=== PATIENT | female | born 1975 | race Caucasian/White ===

== ENCOUNTER 2016-12-10 11:32 | Outpatient (CLI) | payer BC ==
[~2016-12-10] VITALS: Ht 177.8 cm; Wt 97.5 kg
[2016-12-10] MEDS ORDERED: OLME40TA12 PO (11:45)
[2016-12-10] MEDS ORDERED: FLUT9.9S NS (11:45)
[2016-12-10] MEDS ORDERED: MULT-35 PO (11:45)
[2016-12-10] MEDS ORDERED: FEXO180T84 PO (11:45)
== END 2016-12-10 14:44 ==
LOC: PREOP 11:32
PROVIDERS: ATTEND Otolaryngology Otolaryngology/Facial Plastic Surgery
DX: Z01.818 Encounter for other preprocedural examination (principal); H65.23 Chronic serous otitis media, bilateral

== ENCOUNTER 2016-12-14 07:28 | Day surgery (SDC) | payer BC ==
[~2016-12-14] VITALS: Ht 177.8 cm; Wt 97.5 kg
[~2016-12-14 07:28] MED LIST: FEXO180T84 PO; FLUT9.9S NS; MULT-35 PO; OLME40TA12 PO
[2016-12-14 08:07] LABS: BASOPHILS % (AUTO) 1 % (0-10); EOSINOPHILS # (AUTO) 0.2 10^3/uL (0.0-0.3); EOSINOPHILS % (AUTO) 2 % (0-10); LYMPHOCYTES # (AUTO) 2.1 X 10^3 (1.0-4.0); LYMPHOCYTES % (AUTO) 28 % (12-44); MEAN CORPUSCULAR HEMOGLOBIN 29 PG (25-34); MEAN CORPUSCULAR HGB CONC 34 G/DL (32-36); MEAN CORPUSCULAR VOLUME 86 FL (80-99); MEAN PLATELET VOLUME 10.3 FL (7.4-10.4); MONOCYTES # (AUTO) 0.7 X 10^3 (0.0-1.0); MONOCYTES % (AUTO) 9 % (0-12); NEUTROPHILS # (AUTO) 4.5 X 10^3 (1.8-7.8); NEUTROPHILS % (AUTO) 61 % (42-75); PLATELET COUNT 248 10^3/uL (130-400); RED BLOOD COUNT 4.92 10^6/uL (4.35-5.85); RED CELL DISTRIBUTION WIDTH 12.7 % (10.0-14.5); WHITE BLOOD COUNT 7.5 10^3/uL (4.3-11.0)
[2016-12-14 08:09] VITALS: BP 107/72
--- OUTSIDE RECORDS SUMMARY | 2016-12-14 08:24 | XMS REPORT ---
Author Author [facility] Medical Staff Organization [facility] Address [address] [address] [place] [id number] Phone [phone] Care Team Providers Care Detasseling Crew Supervisor Name Role Phone NU NARVAEZ, JESUS CHOPRA [phone] Summary purpose CCDA Sent to [facility] Chief Complaint and Reason for Visit No authorized Reason for Visit (Admitting Diagnosis) is available for this visit. Problem list No authorized problems tracked for continuity of care are available for this visit. Encounters No authorized problems tracked for encounter diagnoses are available for this visit. Medications No medications recorded for this patient visit Allergies, adverse reactions, alerts Allergen Category Ingredient Status Reaction Severity Onset latex Drug latex Active Rash Adolescence Tape Miscellaneous Tape Active Rash Adolescence Immunizations No immunizations recorded for this patient visit Relevant diagnostic tests and/or laboratory data RESULTS Serology Group :38:00 Result Normal Range Units Mycoplasma Pneumo Negative Negative Reference Lab Group [id number]:38:00 Result Normal Range Units Adenovirus Not Detected Not Detected Result Amended on 2015-12-26 at 19:01:32. Previous status was FR. Adeno2 Not Detected Not Detected Result Amended on 2015-12-26 at 19:01:32. Previous status was FR. Coronavirus 229E Not Detected Not Detected Result Amended on 2015-12-26 at 19:01:32. Previous status was FR. Coronavirus HKU1 Not Detected Not Detected Result Amended on 2015-12-26 at 19:01:32. Previous status was FR. Coronavirus NL63 Not Detected Not Detected Result Amended on 2015-12-26 at 19:01:32. Previous status was FR. Coronavirus OC43 Not Detected Not Detected Result Amended on 2015-12-26 at 19:01:32. Previous status was FR. Human Metapneumovir. Not Detected Not Detected Result Amended on 2015-12-26 at 19:01:32. Previous status was FR. Entero1 Not Detected Not Detected Result Amended on 2015-12-26 at 19:01:32. Previous status was FR. Entero2 Not Detected Not Detected Result Amended on 2015-12-26 at 19:01:32. Previous status was FR. Human Rhinovirus 1 AB Detected Not Detected Result Amended on 2015-12-26 at 19:01:32. Previous status was FR. Human Rhinovirus 2 AB Detected Not Detected Result Amended on 2015-12-26 at 19:01:32. Previous status was FR. Human Rhinovirus 3 AB Detected Not Detected Result Amended on 2015-12-26 at 19:01:32. Previous status was FR. Human Rhinovirus 4 AB Detected Not Detected Result Amended on 2015-12-26 at 19:01:32. Previous status was FR. KsxP-W5-1898 Not Detected Not Detected Result Amended on 2015-12-26 at 19:01:32. Previous status was FR. FluA-H1-hoover Not Detected Not Detected Result Amended on 2015-12-26 at 19:01:32. Previous status was FR. FluA-H3 Not Detected Not Detected Result Amended on 2015-12-26 at 19:01:32. Previous status was FR. FluA-pan1 Not Detected Not Detected Result Amended on 2015-12-26 at 19:01:32. Previous status was FR. FluA-pan2 Not Detected Not Detected Result Amended on 2015-12-26 at 19:01:32. Previous status was FR. Influenza B Not Detected Not Detected Result Amended on 2015-12-26 at 19:01:32. Previous status was FR. Parainfluenza Virus 1 Not Detected Not Detected Result Amended on 2015-12-26 at 19:01:32. Previous status was FR. Parainfluenza Virus 2 Not Detected Not Detected Result Amended on 2015-12-26 at 19:01:32. Previous status was FR. Parainfluenza Virus 3 Not Detected Not Detected Result Amended on 2015-12-26 at 19:01:32. Previous status was FR. Parainfluenza Virus 4 Not Detected Not Detected Result Amended on 2015-12-26 at 19:01:32. Previous status was FR. Respiratory Syncytial Vir Not Detected Not Detected Result Amended on 2015-12-26 at 19:01:32. Previous status was FR. Bordetella pertussis Not Detected Not Detected Result Amended on 2015-12-26 at 19:01:32. Previous status was FR. Chlamydophila pnemon Not Detected Not Detected Result Amended on 2015-12-26 at 19:01:32. Previous status was FR. Mycoplasma pneumoni Not Detected Not Detected Result Amended on 2015-12-26 at 19:01:32. Previous status was FR. Gram Positive Bacteria [id number]:38:00 Result Normal Range Units Entero1 Not Detected Not Detected Result Amended on 2015-12-26 at 19:01:32. Previous status was FR. History of procedures Procedure Code Code Type Description Date Performed Performing Physician 50010 CPT-4 DETECT AGENT NOS, DNA, AMP 12-26-2015 JESUS BACANI 85203 CPT-4 RESP VIRUS 12-25 TARGETS 12-26-2015 JESUS BACANI 28565 CPT-4 CHYLMD PNEUM, DNA, AMP PROBE 12-26-2015 JESUS BACANI 92808 CPT-4 M.PNEUMON, DNA, AMP PROBE 12-26-2015 JESUS BACANI 73239 CPT-4 MYCOPLASMA ANTIBODY 12-26-2015 JESUS BACANI 49019 CPT-4 ROUTINE VENIPUNCTURE 12-26-2015 JESUS BACANI Functional status No functional or cognitive status observations are available for this visit. Vital signs No authorized vital signs are available for this visit. Social history No Social History or smoking status observations were recorded for this visit. ( Unknown if ever smoked.) Treatment Plan No treatment plan text is available for this visit. Hospital discharge instructions No discharge instruction text is available for this visit.
--- OUTSIDE RECORDS SUMMARY | 2016-12-14 08:24 | XMS REPORT ---
Author Author [facility] Medical Staff Organization [facility] Address [address] [place] [id number] Phone [phone] Care Team Providers Care Computer Analyst Name Role Phone NU NARVAEZ, JESUS PP [phone] Summary purpose CCDA Sent to [facility] Chief Complaint and Reason for Visit [...] Tape Miscellaneous Tape Active Rash Adolescence Immunizations Status Date Not Given Reason Product Series # Effectiveness / Reaction Pipe Line Walker Lot / Expiration Given 03-19-2016 Influenza Vaccine 8853-3532 1 SEQIRUS [id number] / 10-03-2016 Given 03-19-2016 PNEUMOCOCCAL 23-JAH P-SAC VAC 1 MERCK SHARP & D [id number] / 03-17-2017 Relevant diagnostic tests and/or laboratory data RESULTS Urinalysis [id number]:18:00 Result Normal Range Units Site Voided Urine Color Yellow Yellow Urine Appearance Clear Clear Urine Glucose Negative Negative Urine Bilirubin Negative Negative Urine Ketones Negative Negative Urine Specific [place] 1.020 1.010-1.020 Urine PH 7.0 5.5-7.5 Urine Protein Negative Negative Urine Urobilinogen 0.2 0.2-1.0 Urine Nitrites Negative Negative Urine Blood AB Trace Negative Urine Leukocytes Negative Negative Culture Not Indicated Urine WBC's 0-2 Urine RBC's 3-5 Urine Bacteria Trace Squamous Epi's 2+ Urinalysis [id number]:18:00 Result Normal Range Units Site Voided Urine Color Yellow Yellow Urine Appearance Clear Clear Urine Glucose Negative Negative Urine Bilirubin Negative Negative Urine Ketones Negative Negative Urine Specific [place] 1.020 1.010-1.020 Urine PH 7.0 5.5-7.5 Urine Protein Negative Negative Urine Urobilinogen 0.2 0.2-1.0 Urine Nitrites Negative Negative Urine Blood AB Trace Negative Urine Leukocytes Negative Negative Culture Not Indicated Urine WBC's 0-2 Urine RBC's 3-5 Urine Bacteria Trace Squamous Epi's 2+ History of procedures Procedure Code Code Type Description Date Performed Performing Physician 64426 CPT-4 URINALYSIS, AUTO W/SCOPE 02-22-2016 TERRI BYNUM Functional status No functional or cognitive status [...]
--- OUTSIDE RECORDS SUMMARY | 2016-12-14 08:25 | XMS REPORT ---
Author Author [facility] Medical Staff Organization [facility] Address [address] [address] [place] [id number] Phone [phone] Care Team Providers Care Senior Managing Director Name Role Phone NU NARVAEZ, JESUS PP [phone] Summary purpose CCDA Sent to [facility] Chief Complaint and Reason for Visit No [...] Reason Product Series # Effectiveness / Reaction Enrober Lot / Expiration Given 03-19-2016 Influenza Vaccine 9820-7909 1 SEQIRUS [id number] / 10-03-2016 Given 03-19-2016 PNEUMOCOCCAL 23-JAH P-SAC VAC 1 MERCK SHARP & D [id number] / 03-17-2017 Relevant diagnostic tests and/or laboratory data RESULTS Reference Lab Group [id number]:02:00 Holter Monitor See Manual Report History of procedures No procedures recorded for this patient visit. Functional status No functional or cognitive status [...]
--- OUTSIDE RECORDS SUMMARY | 2016-12-14 08:25 | XMS REPORT ---
Author Author [facility] Medical Staff Organization [facility] Address [address] [place] [id number] Phone [phone] Care Team Providers Care Comfort Advisor Name Role Phone NU NARVAEZ, JESUS PP [phone] Summary purpose CCDA Sent to [facility] Chief Complaint and Reason for Visit [...] Reason Product Series # Effectiveness / Reaction Diesel Engine Operator Lot / Expiration Given 03-19-2016 Influenza Vaccine 9962-2003 1 SEQIRUS [id number] / 10-03-2016 Given 03-19-2016 PNEUMOCOCCAL 23-JAH P-SAC VAC 1 MERCK SHARP & D [id number] / 03-17-2017 Relevant diagnostic tests and/or laboratory data No authorized results are available for this patient visit History of procedures Procedure Code Code Type Description Date Performed Performing Physician 86867 CPT-4 ELECTROCARDIOGRAM REPORT 03-18-2016 MAYLIN TAYLOR Functional status No functional or cognitive status [...]
--- OUTSIDE RECORDS SUMMARY | 2016-12-14 08:25 | XMS REPORT ---
Author Author [facility] Medical Staff Organization [facility] Address [address] [address] [place] [id number] Phone [phone] Care Team Providers Care Yarding And Folding Machine Operator Name Role Phone NU NARVAEZ, JESUS PP [phone] NU NARVAEZ, JESUS PP [phone] JESUS JUDGE MD PP [phone] Summary purpose CCDA Sent to [facility] Chief Complaint and Reason for Visit Admit Diagnosis 1 CHEST PAIN /ANXIETY/BRANCH Problem list Condition Status Certainty Chronicity Onset .Chest pain Discharged .Anxiety Discharged Encounters The following conditions tracked for encounter diagnoses were recorded for this visit: Finding or Diagnosis Status Certainty Chronicity Onset .Chest pain Discharged .Anxiety Discharged Cardiovascular - Actual/potential for altered; Chest pain Discharged Actual Medications Discharge Medications Status Medication Directions Current Belle 180 mg tablet 180 miligram(s) oral ONE TIME A DAY Current amLODIPine 5 mg tablet 5 miligram(s) oral ONE TIME A DAY Current ASPIRIN 325 mg: Tab DR 325 MG oral ONE TIME A DAY Current lisinopril 10 mg tablet 20 miligram(s) oral ONE TIME A DAY Current multivitamin tablet 1 tab(s) oral ONE TIME A DAY Allergies, adverse reactions, alerts Allergen Category Ingredient Status Reaction Severity Onset latex Drug latex Active Rash Adolescence Tape Miscellaneous Tape Active Rash Adolescence Immunizations Status Date Not Given Reason Product Series # Effectiveness / Reaction Rehabilitation Case Coordinator Lot / Expiration Given 03-19-2016 Influenza Vaccine 1 SEQIRUS [id number] / 10-03-2016 Given 03-19-2016 PNEUMOCOCCAL 23-JAH P-SAC VAC 1 MERCK SHARP & D [id number] / 03-17-2017 Relevant diagnostic tests and/or laboratory data RESULTS CBC [id number]:10:00 Result Normal Range Units WBC 9.49 4.60-10.20 x 103/uL RBC 4.83 4.04-6.13 x 106/uL Hemoglobin 14.6 12.2-18.1 g/dl Hematocrit 41.9 37.7-53.7 % MCV 86.7 80.0-97.0 FL MCH 30.2 27.0-31.2 pg MCHC 34.8 31.8-35.4 g/dl RDW 12.6 11.6-14.8 % Platelets 262 142-424 x 103/uL MPV 10.0 9.4-12.4 FL Manual Diff Not Indicated Neutrophil % 58.2 37-80 % Neutrophils 5.52 2.0-6.9 x 103/uL Lymphocyte % 31.5 10-50 % Lymphocytes 2.99 0.6-3.4 x 103/uL Monocyte % 7.4 0-12 % Monocytes 0.70 0.0-1.0 x 103/uL Eosinophil % 2.6 0-7 % Eosinophils 0.25 0-0.7 x 103/uL Basophil % 0.3 0-2 % Basophils 0.03 0.0-0.1 x 103/uL Chemistry Group [id number]:25:00 Result Normal Range Units CK 45 30-170 U/L CKMB 0.7 <=6 ng/ml Troponin 0.00 <=0.20 ng/ml [id number]:20:00 Result Normal Range Units CK 47 30-170 U/L CKMB 0.6 <=6 ng/ml Result Amended on 2016-03-19 at 06:56:47. Previous status was [place]. Troponin 0.02 <=0.20 ng/ml Result Amended on 2016-03-19 at 06:56:47. Previous status was [place]. :10:00 Result Normal Range Units Glucose H 116 70-99 mg/dl BUN 14 7-26 mg/dl Creatinine 0.8 0.6-1.3 mg/dl Sodium 140 136-145 mmol/L Potassium 3.6 3.5-5.1 mmol/L Chloride 107 98-107 mmol/L CO2 26 22-29 mmol/L BUN/Creatinine Ratio 18 7-25 Ratio Calcium 9.8 8.4-10.2 mg/dl Protein Total 7.0 6.4-8.3 g/dl Albumin 3.8 3.5-5.0 g/dl A/G Ratio 1.2 1.2-2.2 Ratio AST 26 5-34 U/L ALT 42 0-55 U/L ALP 83 40-150 U/L Bilirubin Total 0.6 0.2-1.2 mg/dl Osmolality 272 261-280 mOsm/kg Globulin 3.2 2.4-3.5 g/dl CK 61 30-170 U/L CKMB 0.7 <=6 ng/ml BNP 10.0 <=100 pg/ml Troponin 0.02 <=0.20 ng/ml Magnesium 2.2 1.6-2.8 mg/dl TSH 3.36 0.35-4.94 uIU/mL Myoglobin 19.6 10-85 ng/ml Reference Lab Group :18:00 EKG See Manual Report :48:00 EKG See Manual Report History of procedures No procedures recorded for this patient visit. Functional status Functional Status Finding Observation Time Dexterity Right-handed :11 Weight Bearing Statu Full :00 Transferring/Ambulat Independent :11 Bathing Independent :11 Dressing Independent :11 Eating Independent :11 Drinking Independent :11 Toileting Independent :11 Able to Turn Self in Independent :11 Stairs Independent :11 Cognitive Status Finding Observation Time Level of Consciousne Alert :41 Oriented to Person Yes :[address] Yes :41 Oriented to Time Yes :41 Eyes - BETTY Yes :41 Vital signs Type Value Date Respirations 20 :37 Pulse 78 :37 O2 Saturation 97% :37 Systolic Blood Press 108mm/HG :37 Diastolic Blood Pres 70mm/HG :37 Temperature (Fahr) 98.3Degrees :37 Height 67in :22 Weight 215.8LB :22 Social history Type Value Smoking Status NEVER SMOKER Treatment Plan Treatment Plan at Resume home meds with one new medication order to add. Hospital discharge instructions Diagnosis Chest Pain Diet as tolerated Activity Level as tolerated Med Dispensed by Pro See Med List Flu Vaccine Given Received in Hospital Pneumonia Vaccine Gi Received in Hospital Follow up with MISA OR NU Appointment Date and NEXT WEEK Comment: PT WILL MAKE HER OWN APPT DUE TO WORK SCHEDULE
--- OUTSIDE RECORDS SUMMARY | 2016-12-14 08:25 | XMS REPORT ---
Author Author [facility] Medical Staff Organization [facility] Address [address] [place] [id number] Phone [phone] Care Team Providers Care Surveillance Dual Rate Officer Name Role Phone NU NARVAEZ, JESUS PP [phone] JESUS REYES MD, PP [phone] Summary purpose CCDA Sent to [facility] Chief Complaint and Reason for Visit [...] Reason Product Series # Effectiveness / Reaction Imager Lot / Expiration Given 03-19-2016 Influenza Vaccine 8386-2936 1 SEQIRUS [id number] / 10-03-2016 Given 03-19-2016 PNEUMOCOCCAL 23-JAH P-SAC VAC 1 MERCK SHARP & D [id number] / 03-17-2017 Relevant diagnostic tests and/or laboratory data No authorized results are available for this patient visit History of procedures No procedures recorded for this patient visit. Functional status No functional or cognitive status observations are available for this visit. Vital signs Type Value Date Respirations 18 [id number]:55 Pulse 78 :55 O2 Saturation 98% :55 Systolic Blood Press 105mm/HG :55 Diastolic Blood Pres 65mm/HG :55 Temperature (Fahr) 97.4Degrees :55 Social history No Social History or smoking status observations were recorded for this visit. ( Unknown if ever smoked.) Treatment Plan Treatment Plan at Continue taking Dexilant samples that were given to you by Dr Reyes Hospital discharge instructions No discharge instruction text is available for this visit.
--- OUTSIDE RECORDS SUMMARY | 2016-12-14 08:25 | XMS REPORT ---
Author Author [facility] Medical Staff Organization [facility] Address [address] [place] [id number] Phone [phone] Care Team Providers Care Psychiatric Clinical Nurse Specialist Name Role Phone NU NARVAEZ, JESUS PP [phone] Summary purpose CCDA Sent to [facility] Chief Complaint and Reason for Visit No [...] visit Relevant diagnostic tests and/or laboratory data No authorized results are available for this patient visit History of procedures Procedure Code Code Type Description Date Performed Performing Physician 14060 CPT-4 US EXAM ABDO BACK WALL, COMP 05-23-2015 TERRI BYNUM 42256 CPT-4 US EXAM, PELVIC, COMPLETE 05-23-2015 TERRI BYNUM Functional status No functional or [...]
--- OUTSIDE RECORDS SUMMARY | 2016-12-14 08:25 | XMS REPORT ---
Author Author [facility] Medical Staff Organization [facility] Address [address] [place] [id number] Phone [phone] Care Team Providers Care Hangersmith Name Role Phone NU NARVAEZ, JESUS PP [phone] Summary purpose CCDA Sent to [facility] Chief Complaint and Reason for Visit No [...] diagnostic tests and/or laboratory data RESULTS Urinalysis [id number]:09:00 Result Normal Range Units Site Unknown Urine Color Yellow Yellow Urine Appearance Clear Clear Urine Glucose Negative Negative Urine Bilirubin Negative Negative Urine Ketones Negative Negative Urine Specific [place] 1.010 1.010-1.020 Urine PH 6.0 5.5-7.5 Urine Protein Negative Negative Urine Urobilinogen 0.2 0.2-1.0 Urine Nitrites Negative Negative Urine Blood AB Trace Negative Urine Leukocytes AB Trace Negative Urine WBC's 3-5 Urine RBC's 0-2 Urine Bacteria Trace Squamous Epi's Trace Urinalysis [id number]:09:00 Result Normal Range Units Site Unknown Urine Color Yellow Yellow Urine Appearance Clear Clear Urine Glucose Negative Negative Urine Bilirubin Negative Negative Urine Ketones Negative Negative Urine Specific [place] 1.010 1.010-1.020 Urine PH 6.0 5.5-7.5 Urine Protein Negative Negative Urine Urobilinogen 0.2 0.2-1.0 Urine Nitrites Negative Negative Urine Blood AB Trace Negative Urine Leukocytes AB Trace Negative Urine WBC's 3-5 Urine RBC's 0-2 Urine Bacteria Trace Squamous Epi's Trace History of procedures Procedure Code Code Type Description Date Performed Performing Physician 08766 CPT-4 URINALYSIS, AUTO W/SCOPE 05-18-2015 TERRI BYNUM 82843 CPT-4 URINE CULTURE/COLONY COUNT 05-18-2015 TERRI BYNUM Functional status No functional or [...]
--- OUTSIDE RECORDS SUMMARY | 2016-12-14 08:25 | XMS REPORT ---
Author Author [facility] Medical Staff Organization [facility] Address [address] [place] [id number] Phone [phone] Care Team Providers Care Hair Worker Name Role Phone NU NARVAEZ, JESUS CHOPRA [phone] Summary purpose CCDA Sent to [facility] Chief Complaint and Reason for Visit Admit Diagnosis 1 FEVER NOS Problem list No authorized problems tracked for continuity of care are available for this visit. Encounters No authorized problems tracked for encounter diagnoses are available for this visit. Medications No home medications recorded for this patient visit Allergies, adverse reactions, alerts Allergen Category Ingredient Status Reaction Severity Onset latex Drug latex Active Rash Adolescence Tape Miscellaneous Tape Active Rash Adolescence Immunizations No immunizations recorded for this patient visit Relevant diagnostic tests and/or laboratory data RESULTS CBC [id number]:30:00 Result Normal Range Units WBC H 10.96 4.60-10.20 x 103/uL RBC 5.38 4.04-6.13 x 106/uL Hemoglobin 15.8 12.2-18.1 g/dl Hematocrit 45.9 37.7-53.7 % MCV 85.3 80.0-97.0 FL MCH 29.4 27.0-31.2 pg MCHC 34.4 31.8-35.4 g/dl RDW 13.2 11.6-14.8 % Platelets 285 142-424 x 103/uL MPV 10.9 9.4-12.4 FL Manual Diff Not Indicated Neutrophil % 66.5 37-80 % Neutrophils H 7.29 2.0-6.9 x 103/uL Lymphocyte % 25.1 10-50 % Lymphocytes 2.75 0.6-3.4 x 103/uL Monocyte % 6.4 0-12 % Monocytes 0.70 0.0-1.0 x 103/uL Eosinophil % 1.6 0-7 % Eosinophils 0.18 0-0.7 x 103/uL Basophil % 0.4 0-2 % Basophils 0.04 0.0-0.1 x 103/uL Hematology Group [id number]:30:00 Result Normal Range Units Sed Rate L 2 5-20 MM/hr. Serology Group [id number]:30:00 Result Normal Range Units Granite Screen Negative Negative Chemistry Group [id number]:30:00 Result Normal Range Units Glucose 94 70-99 mg/dl BUN 12 7-26 mg/dl Creatinine 1.0 0.57-1.25 mg/dl Sodium 140 136-145 mmol/L Potassium 4.3 3.5-5.1 mmol/L Chloride 104 98-107 mmol/L CO2 26 22-29 mmol/L BUN/Creatinine Ratio 12.1 7-25 Ratio Calcium 9.7 8.4-10.2 mg/dl Protein Total 7.6 6.4-8.3 g/dl Albumin 4.1 3.5-5.0 g/dl A/G Ratio 1.2 1.2-2.2 Ratio AST 21 5-34 U/L ALT 41 0-55 U/L ALP 64 40-150 U/L Bilirubin Total 0.7 0.2-1.2 mg/dl Osmolality 269.9 261-280 mOsm/kg Globulin 3.5 2.4-3.5 g/dl Reference Lab Group [id number]:25:00 West Nile Virus, IgG See Manual Report West Nile Virus IgM See Manual Report Tick Bite Profile See Manual Report History of procedures Procedure Code Code Type Description Date Performed Performing Physician 59074 CPT-4 COMPREHEN METABOLIC PANEL 12-20-2014 JESUS BACANI 79418 CPT-4 COMPLETE CBC W/AUTO DIFF WBC 12-20-2014 JESUS BACANI 98791 CPT-4 RBC SED RATE NONAUTOMATED 12-20-2014 JESUS BACANI 64514 CPT-4 HETEROPHILE ANTIBODY SCREEN 12-20-2014 JESUS BACANI 40141 CPT-4 ROUTINE VENIPUNCTURE 12-20-2014 JESUS BACRICHARD Functional status No functional or cognitive status [...]
--- OUTSIDE RECORDS SUMMARY | 2016-12-14 08:25 | XMS REPORT ---
Author Author [facility] Medical Staff Organization [facility] Address [address] [place] [id number] Phone [phone] Care Team Providers Care Social Media Content Manager Name Role Phone NU NARVAEZ, JESUS PP [phone] Summary purpose CCDA Sent to [facility] Chief Complaint and Reason for [...] Reason Product Series # Effectiveness / Reaction Director Of Food And Nutrition Services Lot / Expiration Given 03-19-2016 Influenza Vaccine 5108-8702 1 SEQIRUS [id number] / 10-03-2016 Given 03-19-2016 PNEUMOCOCCAL 23-JAH P-SAC VAC 1 MERCK SHARP & D [id number] / 03-17-2017 Relevant diagnostic tests and/or laboratory data RESULTS Reference Lab Group [id number]:01:00 EKG See Manual Report History of procedures Procedure Code Code Type Description Date Performed Performing Physician 30336 CPT-4 ELECTROCARDIOGRAM, TRACING 03-13-2016 JESUS JUDGE Functional status No functional or cognitive status [...]
--- OUTSIDE RECORDS SUMMARY | 2016-12-14 08:25 | XMS REPORT ---
Author Author [facility] Medical Staff Organization [facility] Address [address] [place] [id number] Phone [phone] Care Team Providers Care Infantry Senior Sergeant Name Role Phone NU NARVAEZ, JESUS PP [phone] Summary purpose CCDA Sent to [facility] Chief Complaint and Reason for Visit Admit Diagnosis 1 LOWER LEG INJURY NOS Problem list No authorized problems tracked [...] Code Type Description Date Performed Performing Physician 76357 CPT-4 X-RAY EXAM OF TOE(S) 01-11-2015 JESUS JUDGE Functional status No functional or [...]
--- OUTSIDE RECORDS SUMMARY | 2016-12-14 08:26 | XMS REPORT ---
Author Author [facility] Medical Staff Organization [facility] Address [address] [place] [id number] Phone [phone] Care Team Providers Care Regulatory Consultant Name Role Phone NU NARVAEZ, JESUS PP [phone] Summary purpose CCDA Sent to [facility] Chief Complaint and Reason for Visit Admit Diagnosis 1 POLYP OF NASAL CAVITY Problem list No authorized problems tracked for [...] Code Type Description Date Performed Performing Physician 16377 CPT-4 CT MAXILLOFACIAL W/O DYE 01-07-2015 JESUS JUDGE Functional status No functional or [...]
--- OUTSIDE RECORDS SUMMARY | 2016-12-14 08:26 | XMS REPORT ---
Author Author [facility] Medical Staff Organization [facility] Address [address] [place] [id number] Phone [phone] Care Team Providers Care Clinical Systems Analyst Name Role Phone NU NARVAEZ, JESUS PP [phone] Summary purpose CCDA Sent to [facility] Chief Complaint and Reason for Visit Admit Diagnosis 1 SCREENING MAMMO Problem list No authorized problems tracked for [...] Reason Product Series # Effectiveness / Reaction Case Preparer And Liner Lot / Expiration Given 03-19-2016 Influenza Vaccine 0551-9422 1 SEQIRUS [id number] / 10-03-2016 Given 03-19-2016 PNEUMOCOCCAL 23-JAH P-SAC VAC 1 MERCK SHARP & D [id number] / 03-17-2017 Relevant diagnostic tests and/or laboratory data No authorized results are available for this patient visit History of procedures Procedure Code Code Type Description Date Performed Performing Physician 48646 CPT-4 SCR MAMMO BI INCL CAD 09-03-2016 TERRI BYNUM Functional status No functional or [...]
--- OUTSIDE RECORDS SUMMARY | 2016-12-14 08:26 | XMS REPORT ---
Author Author [facility] Medical Staff Organization [facility] Address [address] [address] [place] [id number] Phone [phone] Care Team Providers Care Frozen Yogurt Maker Name Role Phone NU NARVAEZ, JESUS CHOPRA [phone] Summary purpose CCDA Sent to [facility] Chief Complaint and Reason for Visit Admit Diagnosis 1 OTITIS MEDIA NOS Problem list No authorized problems tracked [...] diagnostic tests and/or laboratory data RESULTS CBC [id number]:44:00 Result Normal Range Units WBC 8.35 4.60-10.20 x 103/uL RBC 5.03 4.04-6.13 x 106/uL Hemoglobin 14.7 12.2-18.1 g/dl Hematocrit 42.8 37.7-53.7 % MCV 85.1 80.0-97.0 FL MCH 29.2 27.0-31.2 pg MCHC 34.3 31.8-35.4 g/dl RDW 13.1 11.6-14.8 % Platelets 300 142-424 x 103/uL MPV 10.8 9.4-12.4 FL Manual Diff Not Indicated Neutrophil % 56.6 37-80 % Neutrophils 4.73 2.0-6.9 x 103/uL Lymphocyte % 33.8 10-50 % Lymphocytes 2.82 0.6-3.4 x 103/uL Monocyte % 7.1 0-12 % Monocytes 0.59 0.0-1.0 x 103/uL Eosinophil % 2.0 0-7 % Eosinophils 0.17 0-0.7 x 103/uL Basophil % 0.5 0-2 % Basophils 0.04 0.0-0.1 x 103/uL Serology Group [id number]:44:00 Result Normal Range Units [place] Screen Negative Negative Mycoplasma Pneumo Negative Negative History of procedures Procedure Code Code Type Description Date Performed Performing Physician 67182 CPT-4 COMPLETE CBC W/AUTO DIFF WBC 12-07-2014 JESUS JUDGE 57373 CPT-4 MYCOPLASMA ANTIBODY 12-07-2014 JESUS JUDGE 92872 CPT-4 HETEROPHILE ANTIBODY SCREEN 12-07-2014 JESUS JUDGE 85506 CPT-4 ROUTINE VENIPUNCTURE 12-07-2014 JESUS JUDGE Functional status No functional or [...]
--- OUTSIDE RECORDS SUMMARY | 2016-12-14 08:26 | XMS REPORT ---
Author Author [facility] Medical Staff Organization [facility] Address [address] [place] [id number] Phone [phone] Care Team Providers Care Wastewater Plant Operator Name Role Phone NU NARVAEZ, JESUS PP [phone] Summary purpose CCDA Sent to [facility] Chief Complaint and Reason for Visit Admit Diagnosis 1 RIGHT WRIST PAIN Problem list No authorized problems tracked for [...] Reason Product Series # Effectiveness / Reaction Plastic Installer Lot / Expiration Given 03-19-2016 Influenza Vaccine 5967-1462 1 SEQIRUS [id number] / 10-03-2016 Given 03-19-2016 PNEUMOCOCCAL 23-JAH P-SAC VAC 1 MERCK SHARP & D [id number] / 03-17-2017 Relevant diagnostic tests and/or laboratory [...]
--- OUTSIDE RECORDS SUMMARY | 2016-12-14 08:26 | XMS REPORT ---
Author Author [facility] Medical Staff Organization [facility] Address [address] [place] [id number] Phone [phone] Care Team Providers Care Varnisher Apprentice Name Role Phone NU NARVAEZ, JESUS CHOPRA [phone] Summary purpose CCDA Sent to [facility] Chief Complaint and Reason for Visit [...] Reason Product Series # Effectiveness / Reaction Natural Resources Specialist Lot / Expiration Given 03-19-2016 Influenza Vaccine 0581-8265 1 SEQIRUS [id number] / 10-03-2016 Given 03-19-2016 PNEUMOCOCCAL 23-JAH P-SAC VAC 1 MERCK SHARP & D [id number] / 03-17-2017 Relevant diagnostic tests and/or laboratory data RESULTS Hematology Group :32:00 Result Normal Range Units Sed Rate 5 5-20 MM/hr. Serology Group :32:00 Result Normal Range Units H Pylori IgG Negative Negative Chemistry Group :32:00 Result Normal Range Units Glucose H 107 70-99 mg/dl BUN 14 7-26 mg/dl Creatinine 0.9 0.6-1.3 mg/dl Sodium 139 136-145 mmol/L Potassium 3.7 3.5-5.1 mmol/L Chloride H 110 98-107 mmol/L CO2 26 22-29 mmol/L BUN/Creatinine Ratio 16 7-25 Ratio Calcium 8.9 8.4-10.2 mg/dl Protein Total 7.0 6.4-8.3 g/dl Albumin 3.7 3.5-5.0 g/dl A/G Ratio L 1.1 1.2-2.2 Ratio AST 20 5-34 U/L ALT 29 0-55 U/L ALP 71 40-150 U/L Bilirubin Total 0.4 0.2-1.2 mg/dl Osmolality 269 261-280 mOsm/kg Globulin 3.3 2.4-3.5 g/dl CKMB 0.6 <=6 ng/ml Troponin 0.01 <=0.20 ng/ml History of procedures Procedure Code Code Type Description Date Performed Performing Physician 96806 CPT-4 COMPREHEN METABOLIC PANEL 04-06-2016 [facility] 50744 CPT-4 RBC SED RATE, NONAUTOMATED [facility] CPT-4 ASSAY OF TROPONIN, QUANT [facility]-06[facility] 94973 CPT-4 CREATINE, MB FRACTION [facility] 164[facility] CPT-4 HELICOBACTER PYLORI [facility]-06-[facility] 9[facility] CPT-4 ROUTINE VENIPUNCTURE 04-06-2016 [facility] Functional status No functional or cognitive status [...]
--- OUTSIDE RECORDS SUMMARY | 2016-12-14 08:26 | XMS REPORT ---
Author Author [facility] Medical Staff Organization [facility] Address [address] [place] [id number] Phone [phone] Care Team Providers Care Spray Gun Repairer Name Role Phone NU NARVAEZ, JESUS PP [phone] Summary purpose CCDA Sent to [facility] Chief Complaint and Reason for Visit [...] Reason Product Series # Effectiveness / Reaction Laser Printing Operator Lot / Expiration Given 03-19-2016 Influenza Vaccine 6122-3310 1 SEQIRUS [id number] / 10-03-2016 Given 03-19-2016 PNEUMOCOCCAL 23-JAH P-SAC VAC 1 MERCK SHARP & D [id number] / 03-17-2017 Relevant diagnostic tests and/or laboratory data No authorized results are available for this patient visit History of procedures Procedure Code Code Type Description Date Performed Performing Physician 73533 CPT-4 EMERGENCY DEPT VISIT 03-18-2016 MAYLIN TAYLOR Functional status No functional [...]
--- OUTSIDE RECORDS SUMMARY | 2016-12-14 08:26 | XMS REPORT ---
Author Author [facility] Medical Staff Organization [facility] Address [address] [place] [id number] Phone [phone] Care Team Providers Care Pan Cleaner Name Role Phone NU NARVAEZ, JESUS PP [phone] Summary purpose CCDA Sent to [place] Chief Complaint and Reason for Visit No [...] diagnostic tests and/or laboratory data RESULTS CBC [id number]:50:00 Result Normal Range Units WBC 8.29 4.60-10.20 x 103/uL RBC 4.91 4.04-6.13 x 106/uL Hemoglobin 14.5 12.2-18.1 g/dl Hematocrit 42.4 37.7-53.7 % MCV 86.4 80.0-97.0 FL MCH 29.5 27.0-31.2 pg MCHC 34.2 31.8-35.4 g/dl RDW 13.0 11.6-14.8 % Platelets 254 142-424 x 103/uL MPV 10.2 9.4-12.4 FL Manual Diff Not Indicated Neutrophil % 66.0 37-80 % Neutrophils 5.47 2.0-6.9 x 103/uL Lymphocyte % 25.1 10-50 % Lymphocytes 2.08 0.6-3.4 x 103/uL Monocyte % 7.0 0-12 % Monocytes 0.58 0.0-1.0 x 103/uL Eosinophil % 1.4 0-7 % Eosinophils 0.12 0-0.7 x 103/uL Basophil % 0.5 0-2 % Basophils 0.04 0.0-0.1 x 103/uL Urinalysis :52:00 Result Normal Range Units Site Voided Urine Color Yellow Yellow Urine Appearance Clear Clear Urine Glucose Negative Negative Urine Bilirubin Negative Negative Urine Ketones Negative Negative Urine Specific [place] 1.010 1.010-1.020 Urine PH 7.0 5.5-7.5 Urine Protein Negative Negative Urine Urobilinogen 0.2 0.2-1.0 Urine Nitrites Negative Negative Urine Blood AB Trace Negative Urine Leukocytes Negative Negative Culture Pending Urine WBC's 0-2 Urine RBC's 0-2 Urine Bacteria Rare Squamous Epi's Trace Chemistry Group :50:00 Result Normal Range Units Glucose 97 70-99 mg/dl BUN 11 7-26 mg/dl Creatinine 0.9 0.6-1.3 mg/dl Sodium 140 136-145 mmol/L Potassium 3.9 3.5-5.1 mmol/L Chloride H 110 98-107 mmol/L CO2 27 22-29 mmol/L BUN/Creatinine Ratio 12 7-25 Ratio Calcium 9.3 8.4-10.2 mg/dl Protein Total 7.3 6.4-8.3 g/dl Albumin 3.9 3.5-5.0 g/dl A/G Ratio L 1.1 1.2-2.2 Ratio AST 25 5-34 U/L ALT 37 0-55 U/L ALP 80 40-150 U/L Bilirubin Total 0.6 0.2-1.2 mg/dl Osmolality 270 261-280 mOsm/kg Globulin 3.4 2.4-3.5 g/dl Magnesium 1.8 1.6-2.8 mg/dl T4 6.02 4.87-11.72 ug/dl Result Amended on 2016-02-09 at 13:59:17. Previous status was FR. Free T3 3.21 1.71-3.71 pg/ml Result Amended on 2016-02-09 at 13:59:17. Previous status was FR. Free T4 0.89 0.70-1.48 ng/dl Result Amended on 2016-02-09 at 13:59:17. Previous status was FR. TSH 1.51 0.35-4.94 uIU/mL Result Amended on 2016-02-09 at 13:59:17. Previous status was FR. T3 1.17 0.58-1.59 ng/ml Result Amended on 2016-02-09 at 13:59:17. Previous status was FR. Urinalysis [id number]:52:00 Result Normal Range Units Site Voided Urine Color Yellow Yellow Urine Appearance Clear Clear Urine Glucose Negative Negative Urine Bilirubin Negative Negative Urine Ketones Negative Negative Urine Specific [place] 1.010 1.010-1.020 Urine PH 7.0 5.5-7.5 Urine Protein Negative Negative Urine Urobilinogen 0.2 0.2-1.0 Urine Nitrites Negative Negative Urine Blood AB Trace Negative Urine Leukocytes Negative Negative Culture Pending Urine WBC's 0-2 Urine RBC's 0-2 Urine Bacteria Rare Squamous Epi's Trace Special Chemistry [id number]:50:00 Result Normal Range Units Progesterone 0.7 ng/ml Follicular Phase<1.0 Luteal Phase 2.6 - 21.5 Postmenopausal<0.5 : 2guWuqdghzcx1.1 - 34.0 2nd Trimester 24.0 - 76.0 3rdTrimester 52.0 - 302.0 Estradiol 44 pg/mL Normal Menstruating Females: Follicular Phase 21 - 251 Mid-Cycle Phase 38 - 649 Luteal Phase 21 - 312 Postmenopausal Females not on HRT<10 - 28 History of procedures Procedure Code Code Type Description Date Performed Performing Physician 98089 CPT-4 URINALYSIS, AUTO W/SCOPE 02-09-2016 TERRI BYNUM 79177 CPT-4 URINE CULTURE/COLONY COUNT 02-09-2016 TERRI BYNUM 28933 CPT-4 COMPLETE CBC W/AUTO DIFF WBC 02-09-2016 TERRI BYNUM 80923 CPT-4 ASSAY OF MAGNESIUM 02-09-2016 TERRI BYNUM 49717 CPT-4 COMPREHEN METABOLIC PANEL 02-09-2016 TERRI BYNUM 94161 CPT-4 ASSAY OF TOTAL THYROXINE 02-09-2016 TERRI BYNUM 49426 CPT-4 ASSAY THYROID STIM HORMONE 02-09-2016 TERRI BYNUM 47113 CPT-4 ASSAY OF FREE THYROXINE 02-09-2016 TERRI BYNUM 71148 CPT-4 ASSAY, TRIIODOTHYRONINE (T3) 02-09-2016 TERRI BYNUM 86040 CPT-4 FREE ASSAY (FT-3) 02-09-2016 TERRI BYNUM 19636 CPT-4 ASSAY OF ESTRADIOL 02-09-2016 TERRI BYNUM 03885 CPT-4 ASSAY OF PROGESTERONE 02-09-2016 TERRI BYNUM 22905 CPT-4 US EXAM, PELVIC, COMPLETE 02-09-2016 TERRI BYNUM 49463 CPT-4 ROUTINE VENIPUNCTURE 02-09-2016 TERRI BYNUM Functional status No functional or [...]
[2016-12-14] MEDS ORDERED: FAMOTIDINE 20MG/2ML IV (PEPCID) ONE (09:40)
[2016-12-14] MEDS ORDERED: proPOfol 200 MG/20 ML (DIPRIVAN) VIAL IV ONE (09:44)
[2016-12-14] MEDS ORDERED: SUCCINYLCHOLINE INJ 100 MG/5 ML SYR ONE (09:44)
[2016-12-14] MEDS ORDERED: MIDAZOLAM 2 MG/2 ML (VERSED) VIAL ONE (09:44)
[2016-12-14] MEDS ORDERED: fentaNYL INJECTION 100 MCG/2 ML AMP ONE (09:44)
[2016-12-14] MEDS ORDERED: LACTATED RINGERS 1,000 ML IV PRN (09:47)
[2016-12-14] MEDS ORDERED: FAMOTIDINE 20MG/2ML IV (PEPCID) IV ONE (10:00)
[2016-12-14] MEDS ORDERED: LACTATED RINGERS 1,000 ML IV ONE (10:01)
[2016-12-14] MEDS ORDERED: ONDANSETRON 4 MG/2 ML (SDV) Z0FRAN ONE (10:01)
[2016-12-14] MEDS ORDERED: SEVOFLURANE (ULTANE) 15 ML INHAL SOLN ONE (10:01)
--- NOTE | 2016-12-14 10:07 | Progress Note-Pre Operative ---
Pre-Operative Progress Note H&P Reviewed The H&P was reviewed, patient examined and no changes noted. Date Seen by Provider: Dec 14, 2016 Time Seen by Provider: 09:45 Date H&P Reviewed: Dec 14, 2016 Time H&P Reviewed: 09:45 Pre-Operative Diagnosis: Bilat REc OM/Chronic OM OMAYRA HAWKINS MD Dec 14, 2016 10:07 am
--- NOTE | 2016-12-14 10:33 | Progress Note-Post Operative ---
Post-Operative Progess Note Surgeon (s)/Cold Roll Inspector (s) Surgeon OMAYRA HAWKINS MD Cold Roll Inspector n/a Pre-Operative Diagnosis Bilat REc OM/Chronic OM Post-Operative Diagnosis same Post-Op Procedure Note Date of Procedure: Dec 14, 2016 Name of Procedure Performed: BMT Description & Findings Description and Findings: n/a Anesthesia Type get Estimated Blood Loss minimal Packing none. Specimen(s) collected/removed none OMAYRA HAWKINS MD Dec 14, 2016 10:33 am
[2016-12-14] MEDS ORDERED: morphine INJ 10 MG/ML 1ML (SYR OR VIAL) IVP PRN (10:45)
[2016-12-14] MEDS ORDERED: ONDANSETRON 4 MG/2 ML (SDV) Z0FRAN IVP PRN (10:45)
[2016-12-14] MEDS ORDERED: APAP 325 MG/10.15 ML LIQ (TYLENOL) UDC PO PRN (10:45)
[2016-12-14 11:25] VITALS: BP 101/76
[2016-12-14 11:50] VITALS: BP 109/78
[2016-12-14 12:20] VITALS: BP 109/76
== END 2016-12-14 12:30 | disposition home or self-care (01) ==
LOC: SDC 07:28
PROVIDERS: ATTEND Otolaryngology Otolaryngology/Facial Plastic Surgery
DX: H65.23 Chronic serous otitis media, bilateral (principal); I10 Essential (primary) hypertension; J45.909 Unspecified asthma, uncomplicated; Z79.899 Other long term (current) drug therapy
CPT/HCPCS: 36415; 84703; 85025; 87081